=== PATIENT | male | born 1950 | race Caucasian/White ===

== ENCOUNTER → 2020-08-02 | Outpatient (CLI) | payer OTHER | LOC: SJCVC 13:41 | PROVIDERS: ATTEND Internal Medicine Cardiovascular Disease | DX: R94.31 Abnormal electrocardiogram [ECG] [EKG] (principal); I48.0 Paroxysmal atrial fibrillation; I42.8 Other cardiomyopathies; G47.33 Obstructive sleep apnea (adult) (pediatric); I10 Essential (primary) hypertension; I35.0 Nonrheumatic aortic (valve) stenosis; E66.9 Obesity, unspecified; E78.5 Hyperlipidemia, unspecified; M10.9 Gout, unspecified; I44.7 Left bundle-branch block, unspecified; F41.9 Anxiety disorder, unspecified; Z79.899 Other long term (current) drug therapy; Z95.2 Presence of prosthetic heart valve; Z95.3 Presence of xenogenic heart valve; Z88.1 Allergy status to other antibiotic agents; Z88.0 Allergy status to penicillin; Z88.8 Allergy status to other drugs, medicaments and biological substances ==

== ENCOUNTER → 2020-08-24 | Outpatient (CLI) | payer OTHER ==
[~2020-08-24] MED LIST: ALLOPURINOL 10100 M3 PO; CRESTOR10 MG PO; EFFER-K 20 MEQ20 ME1 PO; ELIQUIS5 MG PO; FINASTERIDE5 MG PO; FLOMAX0.4 MG PO; MAGNESIUM400 MG PO; REQUIP 0.25 M0.25 MG PO; TIKOSYN250 MCG PO; TOPROL XL100 MG PO; VITAMIN D310 MC2 PO
== END ==
LOC: LAB 08:26
PROVIDERS: ATTEND Internal Medicine Cardiovascular Disease
DX: Z01.812 Encounter for preprocedural laboratory examination (principal); Z20.822 Contact with and (suspected) exposure to COVID-19

== ENCOUNTER → 2020-08-24 | Outpatient (CLI) | payer OTHER ==
[2020-08-24 08:36] LABS: ABSOLUTE NEUTROPHILS 3.7 thou/uL (1.4-8.2); BASOPHILS 0.8 % (0.0-2.0); EOSINOPHILS 2.9 % (0.0-3.0); HEMATOCRIT 45.2 % (42.0-52.0); HEMOGLOBIN 15.3 gm/dL (14.0-18.0); LYMPHOCYTES 49.7 % (24.0-44.0); MCH 31.6 pg (26.0-34.0); MCHC 33.9 g/dL (28.0-37.0); MCV 93.1 fL (80.0-100.0); MONOCYTES 8.6 % (1.0-8.0); PLATELET COUNT 187 thou/uL (150-400); RBC 4.85 mil/uL (4.50-6.00); RDW 14.6 % (10.5-14.5); WBC 9.7 thou/uL (4.0-11.0)
[2020-08-24 08:52] LABS: ALBUMIN 3.7 g/dL (3.4-5.0); CALCIUM 9.3 mg/dL (8.5-10.1); CREATININE 1.1 mg/dL (0.7-1.3); POTASSIUM 4.5 mmol/L (3.5-5.1); TOTAL BILIRUBIN 0.4 mg/dL (0.2-1.0); TOTAL PROTEIN 7.7 g/dL (6.4-8.2)
== END ==
LOC: CAT 08:11
PROVIDERS: ATTEND Internal Medicine Cardiovascular Disease
DX: I48.91 Unspecified atrial fibrillation (principal); I10 Essential (primary) hypertension

== ENCOUNTER → 2020-08-29 | Outpatient (CLI) | payer OTHER ==
[~2020-08-29] VITALS: Ht 180.3 cm; Wt 101.6 kg
[2020-08-29 07:19] VITALS: BP 145/94
[2020-08-29 07:48] LABS: APTT 24.1 Seconds (24.5-32.8); INR 0.98; PROTIME 10.7 Seconds (9.3-11.4)
--- NOTE | 2020-08-31 09:13 | P ---
[facility] [place] [address] PROCEDURE REPORT Name: RU LEMA Renea Room #: [facility] [id number] Admission: 08/29/20 Attend Phys: Edgard Garza MD Discharge: Date of : 54 Report #: [id number] THIS REPORT FOR: cc: Braden Meredith APRN, Sunnyun APRN Couchonnal, Luis F. MD ~ DATE OF SERVICE: 08/29/2020 PROCEDURE PERFORMED: Atrial fibrillation ablation. PREOPERATIVE DIAGNOSES: 1. Atrial fibrillation. 2. Prior mitral valve replacement with bioprosthetic aortic valve replacement. HISTORY: The patient is a 69-year-old male with a history of recurrent atrial fibrillation despite Tikosyn therapy. He also has a history of prior severe aortic stenosis, status post aortic valve replacement with a bioprosthetic valve. He is here for AFib ablation. PROCEDURES PERFORMED: 1. Atrial fibrillation ablation, CPT code 78002. 2. 3D mapping, CPT code 89255. 3. Intracardiac echo, CPT code 55552. 4. Focal ablation, CPT code 88226. ANESTHESIA: The patient underwent general anesthesia with no anesthesia related complications. DESCRIPTION OF PROCEDURE: The patient underwent informed consent. We discussed the details of the procedure including the risks, which include but not limited to bleeding, vascular damage, stroke, MO, and cardiac perforation. He understood these risks and is willing to proceed. The patient was brought to EP laboratory in a fasting and sedated state, prepped and draped in a sterile fashion. I obtained access to the right femoral vein x3, placing 8, 9 and 7-Emirati short sheath using the modified Seldinger technique. Next, under fluoroscopy, decapolar catheter was placed easily in the coronary sinus and ICE catheter was placed in the right atrium. Using intracardiac ultrasound, there was evidence of two left and two right pulmonary veins. These images were merged with the cardiac CT scan using [employer]. At baseline, the patient was in sinus rhythm. Next, the patient was systemically heparinized and a transseptal was performed using an SL1 sheath and a [place] needle, transseptal was straightforward and I then exchanged the SL1 sheath for the cryo sheath and placed this into the left atrium. Next, using a Lasso catheter, a 3D geometry of the left atrium was created. Next, I started [facility] [address] [place] [address] PROCEDURE REPORT Name: RU LEMA Room #: REG TACOS Gandhi#: [id number] Admission: 08/29/20 Attend Phys: Edgard Garza MD Discharge: Date of : 54 Report #: [id number] isolating the pulmonary veins. The left superior pulmonary vein underwent a 4-minute freeze, which did not result in isolation, the second freeze resulted in isolation at 51 seconds. The patient had very small atrial signals that marched out and demonstrated isolation and we had large signals that were left that when we paced did not capture and the patient had a very anterior left superior pulmonary vein that essentially hugged the appendage. Therefore, these were far field appendage signals. I did perform one additional freeze of 180 seconds duration in this vessel as well. I then turned my attention to the left inferior pulmonary vein. This vein underwent a 4-minute freeze and isolated at 20 seconds. The right superior pulmonary vein underwent a 3-minute freeze and isolated at 23 seconds. The right inferior pulmonary vein underwent a 3-minute freeze and isolated at 25 seconds. Posterior roofline creation. Next, I decided to perform a posterior roofline. I performed 3 freezes anchored by the left superior pulmonary vein and 2 freezes anchored from the right superior pulmonary vein, each of these freezes was of 3 minutes' duration and esophageal temperatures and phrenic nerve pacing showed no evidence of compromise to either. Next, a repeat voltage map was created showing wide circumferential ablation of the veins and partial isolation of the roof region, but there was still some signals left along the mid atrium. As such, the procedure was concluded. I used intracardiac ultrasound, I verified there was no pericardial effusion. The patient received systemic protamine and once the ACT was within acceptable range, catheters and sheaths were pulled and hemostasis was obtained. [id number] suture held by a 3-way stopcock was deployed to the right groin for hemostasis. CONCLUSIONS: 1. Successful AFib ablation with isolation of pulmonary veins. 2. Successful posterior roofline creation. <ELECTRONICALLY SIGNED> By: Edgard Garza MD 08/31/20 0913 1251 1341 Edgard Garza MD /nt
== END | disposition home or self-care (01) ==
LOC: CATH 06:28
PROVIDERS: ATTEND Internal Medicine Cardiovascular Disease
DX: I48.91 Unspecified atrial fibrillation (principal); I42.9 Cardiomyopathy, unspecified; I10 Essential (primary) hypertension; E78.5 Hyperlipidemia, unspecified; G47.33 Obstructive sleep apnea (adult) (pediatric); F41.9 Anxiety disorder, unspecified; N40.0 Benign prostatic hyperplasia without lower urinary tract symptoms; E66.9 Obesity, unspecified; Z95.2 Presence of prosthetic heart valve; Z98.890 Other specified postprocedural states; Z79.899 Other long term (current) drug therapy; Z79.01 Long term (current) use of anticoagulants
CPT/HCPCS: 62110; 62900; 65020; 70005